=== PATIENT | male | born 1935 | race Caucasian/White ===

== ENCOUNTER 2022-05-13 05:05 | Inpatient (IN) | payer MEDICARE ==
[2022-05-13] MEDS ORDERED: levETIRAcetam 500 MG/5 ML VIAL ONE (05:24)
[2022-05-13] MEDS ORDERED: niCARdipine 25 MG/10 ML VIAL ONE (05:50)
[2022-05-13 07:50] LABS: ALT (SGPT) 55 U/L (8-55); AST (SGOT) 73 U/L (5-34); Albumin 3.2 g/dL (3.4-4.8); Alkaline Phosphatase 202 U/L (40-110); Anion Gap 13 mmol/L (10-20); BUN (Urea Nitrogen) 23 mg/dL (8.4-25.7); Bilirubin, Total 1.8 mg/dL (0.2-1.2); Calc. Creatinine Clearance 0 mL/min (70-130); Calcium 8.8 mg/dL (7.8-10.44); Carbon Dioxide 23 mmol/L (23-31); Chloride 98 mmol/L (98-107); Estimated GFR 79; Globulin 3.9 g/dL (2.4-3.5); Glucose 114 mg/dL (83-110); Potassium 4.3 mmol/L (3.5-5.1); Protein, Total 7.1 g/dL (5.8-8.1); Sodium 130 mmol/L (136-145)
[2022-05-13 07:51] LABS: Troponin I 0.019 ng/mL (< 0.028)
[2022-05-13 09:07] LABS: #Basophils 0.2 thou/uL (0.0-0.2); #Eosinphils 0.1 thou/uL (0.0-0.7); #Lymphocytes 2.3 thou/uL (1.20-3.40); #Monocytes 0.9 thou/uL (0.11-0.59); #Neutrophils 7.9 thou/uL (1.40-6.50); %Basophils 1.4 % (0.0-1.0); %Eosinophils 0.8 % (0.0-10.0); %Lymphocytes 20.3 % (21.0-51.0); %Monocytes 8.2 % (0.0-10.0); %Neutrophils 69.3 % (42.0-75.0); Hemoglobin 11.2 g/dL (14.0-18.0); Mean Corpuscular HGB CONC 34.6 g/dL (32.0-36.0); Mean Corpuscular Hemoglobin 34.7 pg (27.0-31.0); Mean Platelet Volume 8.9 fL (7.4-10.4); Platelet Count 184 thou/uL (130-400); RBC Distribution Width 21.5 % (11.5-14.5); Red Blood Cell (RBC) Count 3.23 mill/uL (4.70-6.10); White Blood Cell (WBC) Count 11.5 thou/uL (4.8-10.8)
[2022-05-13 10:08] LABS: INR-International Normal Ratio 1.4; PTT 37.1 sec (22.9-36.1); Prothrombin Time 17.1 sec (12.0-14.7)
[2022-05-13] MEDS ORDERED: hydrALAZINE 20 MG/ML VIAL SLOW IVP PRN ×2 (10:11→16:05)
[2022-05-13] MEDS ORDERED: Midazolam HCl 2 mg/2 ml Vial SLOW IVP PRN (10:22)
[2022-05-13 11:03] LABS: SARS-CoV-2 NAA Rapid Test Not Detected (NotDetected)
[2022-05-13] MEDS ORDERED: Dexamethasone 10 MG/ML VIAL SLOW IVP SCH (13:30)
[2022-05-13] MEDS ORDERED: Iopamidol-370 76% 500 ML 1 ML ONE (13:59)
[2022-05-13 15:10] VITALS: BMI 25.9
[2022-05-13] MEDS ORDERED: Dexamethasone 4 mg/ml Vial SLOW IVP SCH (20:00)
[2022-05-13] MEDS ORDERED: Pantoprazole 40 MG VIAL IVP SCH (21:00)
[2022-05-13] MEDS ORDERED: levETIRAcetam in NS 500 MG in Premix Bag 1 BAG IVPB SCH (21:00)
[2022-05-13] MEDS ORDERED: levETIRAcetam 500 MG/5 ML VIAL SLOW IVP SCH (21:00)
[2022-05-13] MEDS ORDERED: Simvastatin 40 MG TAB PO SCH (21:00)
[2022-05-13 21:09] LABS: SARS-CoV-2 NAA Rapid Test Not Detected (NotDetected)
[2022-05-13] MEDS: Atorvastatin Calcium 20 MG TAB PO SCH (21:17)
[2022-05-13] MEDS: levETIRAcetam 500 MG/5 ML VIAL SLOW IVP SCH (21:28)
[2022-05-13 22:32] LABS: Bacteria/HPF None Seen HPF (None Seen); Bilirubin Negative (Negative); Blood, Urine Negative (Negative); Clarity Clear (Clear); Glucose, Urine (Dipstick) Normal (Negative); Ketone, Urine Trace mg/dL (Negative); Leukocyte Negative Leu/uL (Negative); Nitrite Negative (Negative); Protein, Urine (Dipstick) 10 mg/dL (Neg-Trace); RBC/HPF 0-3 HPF (0-3); Specific Gravity, Urine 1.037 (1.002-1.036); Squamous Epithelial 0-3 HPF (0-3); Urobilinogen Normal mg/dL (Less than 2); WBC/HPF 0-3 HPF (0-3); pH, Urine 5.5 (5.0-9.0)
[2022-05-14 05:01] LABS: #Eosinphils 0.1 thou/uL (0.0-0.7); #Lymphocytes 1.3 thou/uL (1.20-3.40); #Monocytes 0.7 thou/uL (0.11-0.59); %Basophils 0.2 % (0.0-1.0); %Eosinophils 0.6 % (0.0-10.0); %Lymphocytes 14.7 % (21.0-51.0); %Monocytes 7.6 % (0.0-10.0); %Neutrophils 76.9 % (42.0-75.0); Hemoglobin 10.5 g/dL (14.0-18.0); Mean Corpuscular HGB CONC 32.7 g/dL (32.0-36.0); Mean Corpuscular Hemoglobin 33.1 pg (27.0-31.0); Mean Platelet Volume 8.6 fL (7.4-10.4); Platelet Count 199 thou/uL (130-400); RBC Distribution Width 21.1 % (11.5-14.5); Red Blood Cell (RBC) Count 3.19 mill/uL (4.70-6.10); White Blood Cell (WBC) Count 9.1 thou/uL (4.8-10.8)
[2022-05-14 05:20] LABS: Anion Gap 12 mmol/L (10-20); BUN (Urea Nitrogen) 17 mg/dL (8.4-25.7); Calc. Creatinine Clearance 90 mL/min (70-130); Calcium 8.7 mg/dL (7.8-10.44); Carbon Dioxide 23 mmol/L (23-31); Chloride 98 mmol/L (98-107); Estimated GFR 87; Glucose 116 mg/dL (83-110); Potassium 4.2 mmol/L (3.5-5.1); Sodium 129 mmol/L (136-145)
[2022-05-14] MEDS: Amiodarone 200 MG TAB PO SCH (10:14)
[2022-05-14] MEDS: Atenolol 25 MG TAB PO SCH (10:14)
[2022-05-14] MEDS: levETIRAcetam 500 MG/5 ML VIAL SLOW IVP SCH ×2 (10:16→21:42)
[2022-05-14] MEDS: Pantoprazole 40 MG VIAL IVP SCH (10:18)
[2022-05-14] MEDS ORDERED: hydrALAZINE 20 MG/ML VIAL SLOW IVP PRN (12:35)
[2022-05-14] MEDS ORDERED: Lorazepam 2 MG/ML VIAL ONE (14:41)
[2022-05-14] MEDS ORDERED: Lorazepam 2 MG/ML VIAL SLOW IVP SCH (14:45)
[2022-05-14] MEDS ORDERED: Lorazepam 2 MG/ML VIAL SLOW IVP PRN (14:59)
[2022-05-14] MEDS ORDERED: Midazolam HCl 2 mg/2 ml Vial SLOW IVP PRN (15:00)
[2022-05-14] MEDS ORDERED: levETIRAcetam 500 MG/5 ML VIAL SLOW IVP SCH (15:45)
[2022-05-14] MEDS: Dexamethasone 4 mg/ml Vial SLOW IVP SCH ×2 (15:53→21:44)
[2022-05-14] MEDS ORDERED: Sodium Chloride 0.9% 500 ML IV SCH (18:55)
[2022-05-14] MEDS ORDERED: Lactated Ringer's 500 ML IV SCH (18:55)
[2022-05-14] MEDS: Atorvastatin Calcium 20 MG TAB PO SCH (21:40)
[2022-05-14] MEDS: Sodium Chloride 0.9% 1,000 ML IV SCH (21:42)
[2022-05-15] MEDS: Dexamethasone 4 mg/ml Vial SLOW IVP SCH ×4 (04:00→22:40)
[2022-05-15 05:03] LABS: #Monocytes 0.3 thou/uL (0.11-0.59); #Neutrophils 8.2 thou/uL (1.40-6.50); %Basophils 0.2 % (0.0-1.0); %Eosinophils 0.1 % (0.0-10.0); %Lymphocytes 10.7 % (21.0-51.0); %Monocytes 2.9 % (0.0-10.0); %Neutrophils 86.1 % (42.0-75.0); Hemoglobin 10.8 g/dL (14.0-18.0); Mean Corpuscular HGB CONC 32.2 g/dL (32.0-36.0); Mean Corpuscular Hemoglobin 32.3 pg (27.0-31.0); Mean Platelet Volume 8.5 fL (7.4-10.4); Platelet Count 221 thou/uL (130-400); Red Blood Cell (RBC) Count 3.33 mill/uL (4.70-6.10); White Blood Cell (WBC) Count 9.5 thou/uL (4.8-10.8)
[2022-05-15 05:25] LABS: Anion Gap 11 mmol/L (10-20); BUN (Urea Nitrogen) 17 mg/dL (8.4-25.7); Calc. Creatinine Clearance 95 mL/min (70-130); Calcium 8.7 mg/dL (7.8-10.44); Carbon Dioxide 21 mmol/L (23-31); Chloride 102 mmol/L (98-107); Estimated GFR 89; Glucose 144 mg/dL (83-110); Potassium 4.3 mmol/L (3.5-5.1); Sodium 130 mmol/L (136-145)
[2022-05-15] MEDS: levETIRAcetam 500 MG/5 ML VIAL SLOW IVP SCH ×2 (09:52→20:58)
[2022-05-15] MEDS: Sodium Chloride 0.9% 1,000 ML IV SCH ×2 (10:01→20:57)
[2022-05-15] MEDS: Atenolol 25 MG TAB PO SCH (10:03)
[2022-05-15] MEDS: Pantoprazole 40 MG VIAL IVP SCH (10:03)
[2022-05-15] MEDS: Amiodarone 200 MG TAB PO SCH (10:03)
[2022-05-15] MEDS ORDERED: Lorazepam 2 MG/ML VIAL ONE ×2 (12:48→12:56)
[2022-05-15] MEDS ORDERED: levETIRAcetam 500 MG/5 ML VIAL SLOW IVP SCH ×2 (13:45)
[2022-05-15] MEDS: Lacosamide 200 MG in Sodium Chloride 0.9% 50 ML IVPB SCH (20:57)
[2022-05-15] MEDS: Atorvastatin Calcium 20 MG TAB PO SCH (20:58)
[2022-05-15] MEDS ORDERED: Lacosamide 200 MG in Sodium Chloride 0.9% 50 ML IVPB SCH (21:00)
[2022-05-16] MEDS: Dexamethasone 4 mg/ml Vial SLOW IVP SCH ×3 (04:15→17:23)
[2022-05-16] MEDS: Sodium Chloride 0.9% 1,000 ML IV SCH (04:15)
[2022-05-16 05:01] LABS: #Lymphocytes 1.2 thou/uL (1.20-3.40); #Monocytes 0.6 thou/uL (0.11-0.59); #Neutrophils 15.6 thou/uL (1.40-6.50); %Basophils 0.1 % (0.0-1.0); %Eosinophils 0.1 % (0.0-10.0); %Lymphocytes 6.7 % (21.0-51.0); %Monocytes 3.3 % (0.0-10.0); %Neutrophils 89.8 % (42.0-75.0); Hemoglobin 11.1 g/dL (14.0-18.0); Mean Corpuscular HGB CONC 32.7 g/dL (32.0-36.0); Mean Corpuscular Hemoglobin 33.2 pg (27.0-31.0); Mean Platelet Volume 8.4 fL (7.4-10.4); Platelet Count 256 thou/uL (130-400); RBC Distribution Width 20.7 % (11.5-14.5); Red Blood Cell (RBC) Count 3.33 mill/uL (4.70-6.10); White Blood Cell (WBC) Count 17.4 thou/uL (4.8-10.8)
[2022-05-16 05:20] LABS: Anion Gap 8 mmol/L (10-20); BUN (Urea Nitrogen) 19 mg/dL (8.4-25.7); Calc. Creatinine Clearance 101 mL/min (70-130); Calcium 8.5 mg/dL (7.8-10.44); Carbon Dioxide 23 mmol/L (23-31); Chloride 103 mmol/L (98-107); Estimated GFR 90; Glucose 136 mg/dL (83-110); Potassium 4.1 mmol/L (3.5-5.1); Sodium 130 mmol/L (136-145)
[2022-05-16] MEDS: Amiodarone 200 MG TAB PO SCH (10:27)
[2022-05-16] MEDS: Atenolol 25 MG TAB PO SCH (10:27)
[2022-05-16] MEDS: levETIRAcetam 500 MG/5 ML VIAL SLOW IVP SCH (10:28)
[2022-05-16] MEDS: Lacosamide 200 MG in Sodium Chloride 0.9% 50 ML IVPB SCH (10:28)
[2022-05-16] MEDS: Pantoprazole 40 MG VIAL IVP SCH (10:29)
[2022-05-16 20:11] VITALS: BP 131/68; TEMP 96.8
[2022-05-16] MEDS ORDERED: Lorazepam 2 MG/ML VIAL SLOW IVP PRN (21:00)
[2022-05-16] MEDS ORDERED: Scopolamine 1.5 mg/72 hour Patch TOP PRN (21:00)
[2022-05-16] MEDS ORDERED: Ondansetron PF 4 MG/2 ML Vial IVP PRN (21:00)
[2022-05-16] MEDS ORDERED: Acetaminophen 650 MG Suppository PR PRN (21:00)
[2022-05-16] MEDS ORDERED: Promethazine HCl 25 MG SUPP PR PRN (21:00)
[2022-05-16] MEDS ORDERED: Haloperidol Lactate 5 MG/ML VIAL SLOW IVP PRN (21:00)
[2022-05-16] MEDS ORDERED: Morphine 2 MG/ML VIAL SLOW IVP PRN (21:01)
== END 2022-05-16 21:19 | disposition hospice, inpatient (51) | DRG 64 ==
LOC: ERS 06:11 → ERHOLD 07:16 → NEURO 14:13
PROVIDERS: ADMIT Family Medicine; ATTEND Family Medicine
DX: I61.2 Nontraumatic intracerebral hemorrhage in hemisphere, unspecified (principal); G93.6 Cerebral edema; J96.01 Acute respiratory failure with hypoxia; C79.31 Secondary malignant neoplasm of brain; R47.01 Aphasia; G81.94 Hemiplegia, unspecified affecting left nondominant side; Z66 Do not resuscitate; Z20.822 Contact with and (suspected) exposure to COVID-19; Z51.5 Encounter for palliative care; R56.9 Unspecified convulsions; I48.91 Unspecified atrial fibrillation; I10 Essential (primary) hypertension; K80.80 Other cholelithiasis without obstruction; I72.8 Aneurysm of other specified arteries; R26.9 Unspecified abnormalities of gait and mobility; E78.5 Hyperlipidemia, unspecified; I25.10 Atherosclerotic heart disease of native coronary artery without angina pectoris; R30.0 Dysuria; C80.1 Malignant (primary) neoplasm, unspecified; R31.9 Hematuria, unspecified; Z28.21 Immunization not carried out because of patient refusal; Z95.0 Presence of cardiac pacemaker; Z95.2 Presence of prosthetic heart valve; Z88.8 Allergy status to other drugs, medicaments and biological substances; Z79.899 Other long term (current) drug therapy; Z79.01 Long term (current) use of anticoagulants; Z79.82 Long term (current) use of aspirin
CPT/HCPCS: 36415; 70450; 70496; 70498; 70553; 71045; 71260; 74177; 76700; 80048; 80053; 81001; 84484; 85025; 85610; 85730; 87086; 93005; 93306; 95712; 95819; 95957; C9113; C9254; J1100; J1953; J2060; J7030; J7050; J7120; Q9967

== ENCOUNTER 2022-05-16 21:19 | Inpatient (IN) | payer OTHER ==
[2022-05-16] MEDS ORDERED: Acetaminophen 650 MG Suppository PR PRN (22:49)
[2022-05-16] MEDS ORDERED: Lorazepam 2 MG/ML VIAL SLOW IVP PRN ×2 (22:50→23:38)
[2022-05-16] MEDS ORDERED: Haloperidol Lactate 5 MG/ML VIAL SLOW IVP PRN (22:51)
[2022-05-16] MEDS ORDERED: Ondansetron PF 4 MG/2 ML Vial IVP PRN (22:52)
[2022-05-16] MEDS ORDERED: Promethazine HCl 25 MG SUPP PR PRN (22:53)
[2022-05-16] MEDS ORDERED: Scopolamine 1.5 mg/72 hour Patch TOP PRN (22:54)
[2022-05-16] MEDS ORDERED: levETIRAcetam 500 MG/5 ML VIAL SLOW IVP SCH (23:45)
[2022-05-16] MEDS ORDERED: Lacosamide 200 MG in Sodium Chloride 0.9% 50 ML IVPB SCH (23:45)
[2022-05-16 23:55] VITALS: BMI 26.4
[2022-05-17] MEDS: Dexamethasone 4 mg/ml Vial SLOW IVP SCH ×5 (00:10→23:04)
[2022-05-17] MEDS: Morphine 2 MG/ML VIAL SLOW IVP PRN ×3 (03:42→20:01)
[2022-05-17] MEDS: Lacosamide 200 MG in Sodium Chloride 0.9% 50 ML IVPB SCH ×2 (08:36→21:51)
[2022-05-17] MEDS: levETIRAcetam 500 MG/5 ML VIAL SLOW IVP SCH ×2 (08:37→20:07)
[2022-05-17] MEDS: Atropine Sulfate 1% Ophth Soln 5 ml Bottle PO PRN ×2 (16:08→23:05)
[2022-05-18] MEDS: Atropine Sulfate 1% Ophth Soln 5 ml Bottle PO PRN ×6 (00:17→16:51)
[2022-05-18] MEDS: Morphine 2 MG/ML VIAL SLOW IVP PRN ×2 (02:03→09:34)
[2022-05-18] MEDS: Dexamethasone 4 mg/ml Vial SLOW IVP SCH ×4 (05:48→23:09)
[2022-05-18] MEDS: levETIRAcetam 500 MG/5 ML VIAL SLOW IVP SCH ×2 (09:21→21:26)
[2022-05-18] MEDS: Lacosamide 200 MG in Sodium Chloride 0.9% 50 ML IVPB SCH (09:23)
[2022-05-18] MEDS ORDERED: Scopolamine 1.5 mg/72 hour Patch TOP PRN (16:16)
[2022-05-18] MEDS: Lorazepam 2 MG/ML VIAL SLOW IVP SCH ×2 (16:48→21:26)
[2022-05-19] MEDS: Lorazepam 2 MG/ML VIAL SLOW IVP SCH ×6 (00:06→21:45)
[2022-05-19] MEDS: Dexamethasone 4 mg/ml Vial SLOW IVP SCH ×3 (05:17→18:17)
[2022-05-19] MEDS: Atropine Sulfate 1% Ophth Soln 5 ml Bottle PO PRN ×2 (09:17→18:17)
[2022-05-19] MEDS: levETIRAcetam 500 MG/5 ML VIAL SLOW IVP SCH ×2 (09:18→21:45)
[2022-05-19] MEDS: Lacosamide 200 MG in Sodium Chloride 0.9% 50 ML IVPB SCH (10:24)
[2022-05-20] MEDS: Morphine 2 MG/ML VIAL SLOW IVP PRN ×3 (00:46→10:44)
[2022-05-20] MEDS: Dexamethasone 4 mg/ml Vial SLOW IVP SCH ×4 (00:48→17:42)
[2022-05-20] MEDS: Lorazepam 2 MG/ML VIAL SLOW IVP SCH ×4 (02:23→12:34)
[2022-05-20] MEDS ORDERED: Sterile Water 0 ML ONE (09:10)
[2022-05-20] MEDS: levETIRAcetam 500 MG/5 ML VIAL SLOW IVP SCH ×2 (09:27→21:22)
[2022-05-20] MEDS: Atropine Sulfate 1% Ophth Soln 5 ml Bottle PO PRN ×2 (09:38→15:46)
[2022-05-20] MEDS: Lacosamide 200 MG in Sodium Chloride 0.9% 50 ML IVPB SCH (10:32)
[2022-05-20] MEDS ORDERED: Diazepam 10 MG/2 ML SYRINGE IVP PRN (15:45)
[2022-05-20] MEDS ORDERED: Atropine Sulfate 1% Ophth Soln 5 ml Bottle PO SCH (16:00)
[2022-05-20] MEDS: Midazolam HCl 2 mg/2 ml Vial SLOW IVP SCH ×2 (17:43→21:22)
[2022-05-21] MEDS: Dexamethasone 4 mg/ml Vial SLOW IVP SCH ×3 (00:06→13:13)
[2022-05-21] MEDS: Midazolam HCl 2 mg/2 ml Vial SLOW IVP SCH ×3 (00:41→09:20)
[2022-05-21] MEDS: levETIRAcetam 500 MG/5 ML VIAL SLOW IVP SCH (09:20)
[2022-05-21 12:10] VITALS: BP 135/56; TEMP 98.4
== END 2022-05-21 13:00 | DRG 64 ==
LOC: NEURO 21:19 → UNDOADMIN 21:27 → NEURO 21:27 → SURG A 22:56
PROVIDERS: ADMIT Student in an Organized Health Care Education/Training Program; ATTEND Student in an Organized Health Care Education/Training Program
DX: I61.2 Nontraumatic intracerebral hemorrhage in hemisphere, unspecified (principal); G93.6 Cerebral edema; G81.91 Hemiplegia, unspecified affecting right dominant side; R47.01 Aphasia; E87.1 Hypo-osmolality and hyponatremia; C79.31 Secondary malignant neoplasm of brain; Z66 Do not resuscitate; Z51.5 Encounter for palliative care; Z20.822 Contact with and (suspected) exposure to COVID-19; I10 Essential (primary) hypertension; E78.5 Hyperlipidemia, unspecified; I48.91 Unspecified atrial fibrillation; Z79.01 Long term (current) use of anticoagulants; Z79.82 Long term (current) use of aspirin; Z79.899 Other long term (current) drug therapy; Z88.8 Allergy status to other drugs, medicaments and biological substances; Z95.0 Presence of cardiac pacemaker
CPT/HCPCS: C9254; J1100; J1953; J2060; J2250; J2270